=== PATIENT | female | born 1990 | race Caucasian/White ===

== ENCOUNTER 2021-10-19 15:45 | Emergency (ER) | payer SELFPAY ==
--- OUTSIDE RECORDS SUMMARY | 2021-10-19 15:47 | XMS REPORT | Continuity of Care Document ---
:1990 Author Organization [facility] t Address [address] [place] [address] Care Team Providers Name Role Phone KELSEA HUNT Attending Clinician Unavailable SHEEBA Attending Clinician Unavailable Suhail GRIER Attending Clinician Unavailable POONAM RAY Attending Clinician Unavailable KELSEA HUNT Admitting Clinician Unavailable SHEEBA Admitting Clinician Unavailable Problems This patient has no known problems. Allergies, Adverse Reactions, Alerts This patient has no known allergies or adverse reactions. Medications This patient has no known medications. Procedures This patient has no known procedures. Encounters Start End Encounter Admission Attending Care Care Encounter Source Date/Time Date/Time Type Type Clinicians Facility Department ID 2019-12-23 Inpatient U GILBERT [facility] [id number] [facility] 22:25:00 JAN 2020-01-25 2020-01-28 [id number] 02:11:00 15:24:00 SUNEET 2019-12-23 2019-12-24 Emergency [id number] 22:27:00 00:02:00 SEBASTIAN HERR 2019-12-23 2019-12-23 Emergency E NASRIN RAY [id number] 20:11:00 21:35:00 RAUVAN Results This patient has no known results.
[2021-10-19 16:25] LABS: Urine Blood Negative (Negative); Urine Glucose Negative (Negative); Urine Protein Negative (Negative); Urine Specific Gravity 1.025 (1.005-1.030)
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
[2021-10-19 18:41] VITALS: BP 138/74; TEMP 97.9; O2SAT 99
== END 2021-10-19 16:57 | disposition home or self-care (01) ==
LOC: ER 15:45
DX: S05.11XA Contusion of eyeball and orbital tissues, right eye, initial encounter (principal); F32.A Depression, unspecified; F41.9 Anxiety disorder, unspecified; F17.210 Nicotine dependence, cigarettes, uncomplicated; Z88.1 Allergy status to other antibiotic agents
CPT/HCPCS: 70486; 76377; 81003; 99283